=== PATIENT | female | born 1980 | race Caucasian/White ===

== ENCOUNTER 2019-02-04 17:38 | Emergency (ER) | payer OTHER ==
[~2019-02-04] VITALS: Ht 157.5 cm; Wt 61.4 kg
[2019-02-04] MEDS ORDERED: IBUP-1114 PO (17:46)
[2019-02-04] MEDS ORDERED: BIOF4GEL4 TOP (19:52)
--- NOTE | 2019-02-04 19:54 | REPVR ---
EXAM: US Duplex Right Lower Extremity Veins, Limited EXAM DATE/TIME: 02/04/2019 7:35 PM CLINICAL HISTORY: 38 years old, female; Pain; Leg, upper; Right; Additional info: Swelling TECHNIQUE: Imaging protocol: Real-time Duplex ultrasound of the Right Lower Extremity with 2-D crystal scale, color Doppler flow and spectral waveform analysis with image documentation. Limited exam was focused on the right lower extremity veins. COMPARISON: No relevant prior studies available. FINDINGS: Right deep veins: Unremarkable. The common femoral, femoral, and popliteal veins are patent without thrombus. Normal compressibility, augmentation response and Doppler waveforms. Right superficial veins: Unremarkable. Saphenofemoral junction is patent without thrombus. Soft tissues: Unremarkable. IMPRESSION: No deep vein thrombosis in the veins visualized in the right lower extremity. Electronically signed by: Hudson Eden On 02/04/2019 19:53:52 PM
[2019-02-04 20:02] VITALS: BP 124/77
--- NOTE | 2019-02-05 09:18 | REP ---
RIGHT KNEE, COMPLETE: 02/04/2019. Clinical history: Trauma. States fell out of truck. Findings: No prior studies. Tibial spines, medial and lateral joint lines and the patellofemoral joint without significant spurring or degenerative changes. No joint space narrowing, fracture or loose body. A small joint effusion is difficult to exclude on the lateral view. There is no avulsion or focal bone lesion. Impression: 1. Question of a small suprapatellar joint effusion, otherwise negative right knee. Electronically Signed by Palmer Constantino MD 02/05/2019 08:14 P
== END 2019-02-04 20:15 | disposition home or self-care (01) ==
LOC: M ED 17:38
DX: S83.91XA Sprain of unspecified site of right knee, initial encounter (principal); W06.XXXA Fall from bed, initial encounter; Y92.59 Other trade areas as the place of occurrence of the external cause; Y93.89 Activity, other specified; F17.200 Nicotine dependence, unspecified, uncomplicated; Z87.828 Personal history of other (healed) physical injury and trauma